=== PATIENT | female | born 1950 | race African-American/Black ===

== ENCOUNTER 2017-03-18 08:15 | Emergency (ER) | payer MEDICARE ==
[~2017-03-18] VITALS: Ht 165.1 cm; Wt 92.0 kg
[2017-03-18 08:32] VITALS: BP 140/69
== END 2017-03-18 11:00 | disposition home or self-care (01) ==
LOC: ER 09:00
DX: H10.89 Other conjunctivitis (principal); E03.9 Hypothyroidism, unspecified
CPT/HCPCS: 99283

== ENCOUNTER 2021-10-06 10:52 | Emergency (ER) | payer MEDICARE, BC ==
[~2021-10-06] VITALS: Ht 182.9 cm; Wt 98.0 kg
[2021-10-06 11:00] VITALS: BP 180/85
== END 2021-10-06 13:52 | disposition home or self-care (01) ==
LOC: ER 12:04
DX: M54.59 Other low back pain (principal); G89.11 Acute pain due to trauma; W03.XXXA Other fall on same level due to collision with another person, initial encounter; Y93.89 Activity, other specified; Y92.89 Other specified places as the place of occurrence of the external cause; E78.00 Pure hypercholesterolemia, unspecified; E03.9 Hypothyroidism, unspecified
CPT/HCPCS: 99281